=== PATIENT | male | born 1990 | race Caucasian/White ===

== ENCOUNTER 2017-04-22 10:46 | Emergency (ER) | payer BC ==
[~2017-04-22] VITALS: Ht 180.3 cm; Wt 106.8 kg
[~2017-04-22 10:46] MED LIST: BACTRIM,SEPT1 TABLET PO; KEFLEX500 MG PO; NO HOME MEDS; ULTRAM50 MG PO
[2017-04-22] MEDS ORDERED: MOTRIN600 MG PO (13:39)
[2017-04-22 14:15] VITALS: BP 125/79
== END 2017-04-22 14:30 | disposition home or self-care (01) ==
LOC: EME 10:46
DX: S86.912A Strain of unspecified muscle(s) and tendon(s) at lower leg level, left leg, initial encounter (principal); F17.200 Nicotine dependence, unspecified, uncomplicated
CPT/HCPCS: 73564; 99281; 99283